=== PATIENT | male | born 1995 | race Caucasian/White ===

== ENCOUNTER 2021-07-08 08:44 | Emergency (ER) | payer OTHER, SELFPAY ==
--- NOTE | ~2021-07-08 | XR_ITS ---
EXAMINATION: XR CHEST CLINICAL INFORMATION: Flulike symptoms. COMPARISON: None TECHNIQUE: Frontal view of the chest was obtained. FINDINGS: No significant abnormality is noted involving the heart, lungs, mediastinum, bony thorax or soft tissues. XR/XR chest 1V IMPRESSION: Unremarkable chest examination.
[2021-07-08 09:03] VITALS: BP 137/81; PULSE 99; RESP 18; TEMP 37.8; O2SAT 97; BMI 26.2
[2021-07-08] MEDS: Ibuprofen 600 MG TABLET PO (09:18)
[2021-07-08 09:33] LABS: MANUAL DIFF FLAG NO
[2021-07-08 09:37] LABS: Basophils Percent Auto 0.4 % (0-2); Eosinophils Absolute Auto 0.1 X10*3/uL (0.0-0.4); Eosinophils Percent Auto 0.9 % (0-4); Hemoglobin 13.4 g/dl (14.0-18.0); Imm Gran Abs Auto 0.03 X10*3/uL (0.00-0.03); Imm Gran Pct Auto 0.4 % (0.0-0.4); Mean Corpuscular HGB Conc 33.5 g/dl (31.0-36.0); Mean Corpuscular Hemoglobin 29.8 pg (27.0-33.0); Mean Corpuscular Volume 89.1 fL (80.0-98.0); Mean Platelet Volume 10.1 fL (9.4-12.4); Monocytes Percent Auto 14.7 % (2-11); Neutrophils Absolute Auto 4.8 x10*3/uL (2.0-8.3); Neutrophils Percent Auto 69.6 % (45-73); Platelet Count 222 X10*3/uL (160-400); Red Blood Count 4.49 X10*6/uL (4.60-5.80); Red Cell Distribution Width 12.9 % (11.0-16.0); White Blood Count 6.9 X10*3/uL (4.8-10.8)
[2021-07-08 09:49] LABS: Alanine Aminotransferase 13 U/L (0-40); Albumin Level 4.5 g/dL (3.5-5.0); Alkaline Phosphatase 72 U/L (39-117); Anion Gap 12 (12-20); Aspartate Amino Transferase 15 U/L (5-37); Bilirubin Direct 0.3 mg/dL (0.0-0.5); Bilirubin Total 0.7 mg/dL (0.0-1.0); Blood Urea Nitrogen 10 mg/dL (9-16); Calcium 9.1 mg/dL (8.4-10.2); Carbon Dioxide 26 mmol/L (22-29); Chloride 103 mmol/L (96-108); Creatinine Clr Calc Pharmacy 165.7; Estimated Glomerular Filt Rate > 60; Glucose Random 94 mg/dL (60-115); Potassium 3.8 mmol/L (3.3-5.1); Sodium 137 mmol/L (135-145); Total Protein 7.1 g/dL (6.5-8.0)
[2021-07-08 09:55] LABS: COVID-19 Test Negative (Negative); IDNOW Serial# 16C4AD1C
[2021-07-08 09:56] LABS: Influenza A Positive (Negative); Influenza B2 Negative (Negative)
[2021-07-08 10:05] VITALS: PULSE 89; RESP 18; O2SAT 95
[2021-07-08] MEDS: Albuterol/Iprat 2.5/0.5MG 3 ML AMPUL.NEB INHALE (10:05)
--- NOTE | 2021-07-08 10:12 | ED.URI ---
HPI - URI/Sore Throat General Chief Complaint: Upper Respiratory Symptoms Stated Complaint: Flu symptoms Time Seen by Provider: 07/08/21 09:10 Source: patient Mode of arrival: ambulatory History of Present Illness HPI Narrative: 26-year-old male with no significant past medical history presenting to the ED complaining of productive cough, headache, nasal congestion, rhinorrhea, chest discomfort when coughing, and fever T-max 102 degrees x3 days. Took Tylenol at 03:00. Denies sick contacts, SOB, ear pain, sore throat, recent travel, pedal edema, abdominal pain, nausea/vomiting MD elicited complaint: fever, cough, rhinorrhea, nasal congestion and sinus pain Onset (ago): day(s) Related Data Previous Rx's Medication Instructions Recorded acetaminophen 500 mg tablet 500 mg PO Q6H PRN #20 tab 07/08/21 (Tylenol Extra Strength) albuterol sulfate 90 mcg/actuation 2 puff INHALATION Q4-6H PRN #6.7 g 07/08/21 aerosol inhaler benzonatate 200 mg capsule 200 mg PO TID PRN #14 cap 07/08/21 fluticasone propionate 50 2 spray INTRANASAL DAILY #16 g 07/08/21 mcg/actuation nasal spray,suspension (Flonase Allergy Relief) ibuprofen 400 mg tablet 400 mg PO Q6H 7 Days #14 tab 07/08/21 Allergies Allergy/AdvReac Type Severity Reaction Status Date / Time nortriptyline Allergy Unknown Verified 09/09/15 00:00 Review of Systems Review of Systems: Constitutional: + Fever, No Chills ENT/Mouth: No Ear Pain, + Nasal Congestion, + Sinus Pain, No Hoarseness, No sore throat, + Rhinorrhea, No Swallowing Difficulty Cardiovascular: + Chest discomfort when coughing, No SOB Respiratory: + Cough, + Sputum, No Wheezing Gastrointestinal: No Nausea, No Vomiting, No Diarrhea, No Constipation, No Abdominal pain Genitourinary: No Dysuria, No Urinary Frequency, No Hematuria, No Urgency, No Flank Pain Musculoskeletal: No joint pain, + Myalgias, No Joint Swelling Skin: No Skin Lesions, No rash Neuro: No Weakness, No Numbness Yes all other systems are reviewed and are negative [facility] Past Medical History Attestation statement: The following information was validated with the patient. Social History Social History Advance Directives: No Advance Directives Information Provided: No Physical Exam Vital Signs: Vital Signs: Last Vital Signs Temp 100.0 F 07/08/21 09:03 Pulse 89 07/08/21 10:05 Resp 18 07/08/21 10:05 BP 137/81 07/08/21 09:03 Pulse Ox 97 07/08/21 09:03 BMI result Body Mass Index 26.2 Const: General: cooperative, healthy appearing and no acute distress Orientation/consciousness: patient oriented x3 Limitations: no limitations HEENT: Head: Yes normal to inspection and Yes atraumatic Ears: hearing grossly normal bilaterally, external ears normal, TM's normal bilaterally and mastoids normal General nose exam: Normal external nose present and Nasal discharge present Face and sinus: Yes normal facial exam Mouth: moist mucous membranes and no drooling Throat: Yes tonsils normal, Yes uvula midline, No peritonsillar mass, Yes posterior oropharynx abnormal (+ posterior oropharyngeal erythema, no exudates), No uvula laterally displaced and No uvular edema Eyes: General: appearance normal, both eyes and all related structures EOM: EOMs intact bilaterally Neck: Neck: Yes normal visual inspection, Yes no lymphadenopathy, Yes no meningeal signs and Yes supple Resp: Other: coarse upper airway sounds. Talking in complete sentences, no respiratory distress Effort & Inspection: normal respiratory effort and no respiratory distress Auscultation: no crackles, no wheezes and lung sounds not diminished Cardio: Rate: regular rate Heart sounds: S1 normal heart sound present and S2 normal heart sound present GI: Inspection: Yes normal to inspection : General: Yes no CVA tenderness Back/Spine/Pelvis: Back: no CVA tenderness Skin: Rashes: no rashes Wounds: no wounds Neuro: General: patient oriented x3 and no meningeal signs Gait exam (Neuro): Normal gait present Extrem: General: Yes normal to inspection and Yes no pedal edema Course Course Course Narrative: Low concern for severe sepsis is likely viral etiology -1020--no leukocytosis. Labs otherwise unremarkable. CXR unremarkable. -influenza A positive, COVID-19 negative MDM - URI/Sore Throat MDM Narrative Medical decision making narrative: 26-year-old male with no significant past medical history presenting to the ED complaining of productive cough, headache, nasal congestion, rhinorrhea, chest discomfort when coughing, and fever T-max 102 degrees x3 days. On exam low-grade temp 100 degrees, NAD, nontoxic, lungs with coarse upper airway sounds, good air movement, no wheezing, talking in complete sentences, no pedal edema. Concern for viral illness including COVID-19 vs influenza vs bronchitis. Rule out pneumonia. Unlikely PE/ACS Plan: flu, rapid COVID, labs, CXR, DuoNeb Differential Diagnosis Differential diagnosis: Likely upper respiratory infection, sinusitis, viral infection, bronchitis and pharyngitis Medical Records Attestation: I reviewed the patient's medical records. Lab Data Attestation: I reviewed the patient's lab results. Result diagrams: 07/08/21 09:24 07/08/21 09:24 Labs: Lab Results 07/08/21 07/08/21 07/08/21 Range/Units 09:24 09:24 09:24 WBC 6.9 (4.8-10.8) X10*3/uL RBC 4.49 L (4.60-5.80) X10*6/uL Hgb 13.4 L (14.0-18.0) g/dl Hct 40.0 L (42.0-52.0) % MCV 89.1 (80.0-98.0) fL MCH 29.8 (27.0-33.0) pg MCHC 33.5 (31.0-36.0) g/dl RDW 12.9 (11.0-16.0) % Plt Count 222 (160-400) X10*3/uL MPV 10.1 (9.4-12.4) fL Immature Gran % (Auto) 0.4 (0.0-0.4) % Neut % (Auto) 69.6 (45-73) % Lymph % (Auto) 14.0 L (20-40) % Garrett % (Auto) 14.7 H (2-11) % Eos % (Auto) 0.9 (0-4) % Baso % (Auto) 0.4 (0-2) % Lymph # (Auto) 1.0 L (1.2-4.9) X10*3/uL Garrett # (Auto) 1.0 (0.1-1.2) X10*3/uL Eos # (Auto) 0.1 (0.0-0.4) X10*3/uL Baso # (Auto) 0.0 (0.0-0.2) X10*3/uL Abs Immat Gran (auto) 0.03 (0.00-0.03) X10*3/uL Absolute Neuts (auto) 4.8 (2.0-8.3) x10*3/uL Absolute Nucleated RBC 0.000 (0.0-0.012) X10*3/uL Nucleated RBC % (auto) 0.0 (0.0-0.2) /100WBC Sodium 137 (135-145) mmol/L Potassium 3.8 (3.3-5.1) mmol/L Chloride 103 (96-108) mmol/L Carbon Dioxide 26 (22-29) mmol/L Anion Gap 12 (12-20) BUN 10 (9-16) mg/dL Creatinine 0.80 (0.5-1.4) mg/dL Estim Creat Clear Calc 165.7 Estimated GFR > 60 Random Glucose 94 (60-115) mg/dL Calcium 9.1 (8.4-10.2) mg/dL Total Bilirubin 0.7 (0.0-1.0) mg/dL Direct Bilirubin 0.3 (0.0-0.5) mg/dL AST 15 (5-37) U/L ALT 13 (0-40) U/L Alkaline Phosphatase 72 (39-117) U/L Total Protein 7.1 (6.5-8.0) g/dL Albumin 4.5 (3.5-5.0) g/dL COVID-19 (JESUS) (Negative) COVID-19 Clin Com Influenza Type A (CORNEL) Positive A (Negative) Influenza Type B (CORNEL) Negative (Negative) Influenza A & B Note See Note 07/08/21 Range/Units 09:24 WBC (4.8-10.8) X10*3/uL RBC (4.60-5.80) X10*6/uL Hgb (14.0-18.0) g/dl Hct (42.0-52.0) % MCV (80.0-98.0) fL MCH (27.0-33.0) pg MCHC (31.0-36.0) g/dl RDW (11.0-16.0) % Plt Count (160-400) X10*3/uL MPV (9.4-12.4) fL Immature Gran % (Auto) (0.0-0.4) % Neut % (Auto) (45-73) % Lymph % (Auto) (20-40) % Garrett % (Auto) (2-11) % Eos % (Auto) (0-4) % Baso % (Auto) (0-2) % Lymph # (Auto) (1.2-4.9) X10*3/uL Garrett # (Auto) (0.1-1.2) X10*3/uL Eos # (Auto) (0.0-0.4) X10*3/uL Baso # (Auto) (0.0-0.2) X10*3/uL Abs Immat Gran (auto) (0.00-0.03) X10*3/uL Absolute Neuts (auto) (2.0-8.3) x10*3/uL Absolute Nucleated RBC (0.0-0.012) X10*3/uL Nucleated RBC % (auto) (0.0-0.2) /100WBC Sodium (135-145) mmol/L Potassium (3.3-5.1) mmol/L Chloride (96-108) mmol/L Carbon Dioxide (22-29) mmol/L Anion Gap (12-20) BUN (9-16) mg/dL Creatinine (0.5-1.4) mg/dL Estim Creat Clear Calc Estimated GFR Random Glucose (60-115) mg/dL Calcium (8.4-10.2) mg/dL Total Bilirubin (0.0-1.0) mg/dL Direct Bilirubin (0.0-0.5) mg/dL AST (5-37) U/L ALT (0-40) U/L Alkaline Phosphatase (39-117) U/L Total Protein (6.5-8.0) g/dL Albumin (3.5-5.0) g/dL COVID-19 (JESUS) Negative (Negative) COVID-19 Clin Com See Note Influenza Type A (CORNEL) (Negative) Influenza Type B (CORNEL) (Negative) Influenza A & B Note Discharge Plan Discharge Clinical Impression: Influenza A Patient Disposition: Home, Self-Care Instructions: Influenza (DC) Additional Instructions: You have the flu. Rest, stay hydrated. Monitor your temperatures, take Tylenol and Motrin for fever/body aches Tessalon Perles for cough take as needed Flonase as a nasal decongestant Albuterol inhaler will help with wheezing/shortness of breath, take as needed Please follow-up with her doctor in 1 week If symptoms persist or worsen, you have fever unresolved with medications, constant worsening shortness of breath or chest pain please return to the ED Please wash her hands, cover your mouth when coughing and wear mask Prescriptions: New benzonatate 200 mg capsule 200 mg PO TID PRN (Reason: cough) Qty: 14 0RF acetaminophen [Tylenol Extra Strength] 500 mg tablet 500 mg PO Q6H PRN (Reason: pain or fever) Qty: 20 0RF ibuprofen 400 mg tablet 400 mg PO Q6H 7 Days Qty: 14 0RF albuterol sulfate 90 mcg/actuation HFA aerosol inhaler 2 puff inhalation Q4-6H PRN (Reason: shortness of breath or wheezing) Qty: 6.7 0RF fluticasone propionate [Flonase Allergy Relief] 50 mcg/actuation spray,suspension 2 spray intranasal DAILY Qty: 16 0RF Rx Instructions: administer into each nostril Referrals: Physician,None [Primary Care Provider] - 1 week (as needed) Stand Alone Forms: Work/School Release
[2021-07-08 10:43] VITALS: TEMP 37.6
== END 2021-07-08 10:35 | disposition home or self-care (01) ==
PROVIDERS: Physician Assistant; Emergency Provider Emergency Medicine
DX: J10.1 Influenza due to other identified influenza virus with other respiratory manifestations (principal); R05.9 Cough, unspecified; R51.9 Headache, unspecified; R07.89 Other chest pain; Z20.822 Contact with and (suspected) exposure to COVID-19; Z79.899 Other long term (current) drug therapy
CPT/HCPCS: 36415; 71045; 80048; 80076; 85025; 87502; 87635; 94640; 99284

== ENCOUNTER 2021-07-10 22:09 | Emergency (ER) | payer OTHER, SELFPAY ==
--- NOTE | ~2021-07-10 | XR_ITS ---
EXAMINATION: XR CHEST CLINICAL INFORMATION: Evaluate for pneumonia COMPARISON: 07/08/2021 TECHNIQUE: Frontal view of the chest was obtained. FINDINGS: No significant abnormality is noted involving the heart, lungs, mediastinum, bony thorax or soft tissues. XR/XR chest 1V IMPRESSION: Unremarkable examination.
[2021-07-10 22:42] VITALS: BP 140/95; PULSE 76; RESP 16; TEMP 36.9; O2SAT 98; BMI 26.2
[2021-07-10 23:13] LABS: IDNOW Serial# 55D5AD1C; Influenza A Negative (Negative); Influenza B2 Negative (Negative)
[2021-07-10 23:14] LABS: COVID-19 Test Negative (Negative)
--- NOTE | 2021-07-11 00:56 | ED.URI ---
HPI - URI/Sore Throat General Chief Complaint: Upper Respiratory Symptoms Stated Complaint: Weakness/Fever/Sob Time Seen by Provider: 07/11/21 00:55 Source: patient Mode of arrival: ambulatory Limitations: no limitations History of Present Illness HPI Narrative: Patient comes to emergency room complaining 3 days of cough, congestion and fever. Patient's and baby tested positive for influenza A. Patient denies vomiting or diarrhea. Of Note, patient was diagnosed with influenza a 2 days ago here in this hospital. Patient has no new symptoms. Patient has already been prescribed Tessalon Perles, Tylenol, ibuprofen, albuterol and fluticasone. Related Data Previous Rx's Medication Instructions Recorded acetaminophen 500 mg tablet 500 mg PO Q6H PRN #20 tab 07/08/21 (Tylenol Extra Strength) albuterol sulfate 90 mcg/actuation 2 puff INHALATION Q4-6H PRN #6.7 g 07/08/21 aerosol inhaler benzonatate 200 mg capsule 200 mg PO TID PRN #14 cap 07/08/21 fluticasone propionate 50 2 spray INTRANASAL DAILY #16 g 07/08/21 mcg/actuation nasal spray,suspension (Flonase Allergy Relief) ibuprofen 400 mg tablet 400 mg PO Q6H 7 Days #14 tab 07/08/21 prednisone 50 mg tablet 50 mg PO DAILY #5 tab 07/11/21 Allergies Allergy/AdvReac Type Severity Reaction Status Date / Time nortriptyline Allergy Unknown Verified 09/09/15 00:00 Review of Systems Review of Systems: Constitutional : No Weight loss, complaining of subjective fever, No Chills, No Night Sweats, No Fatigue, No Malaise ENT/Mouth : No Hearing loss, No Ear Pain, No Nasal Congestion, No Sinus Pain, No Hoarseness, No sore throat, No Rhinorrhea, No Swallowing Difficulty Eyes: No Eye Pain, No Swelling, No Redness, No Foreign Body, No Discharge, No Vision Changes Cardiovascular : No Chest Pain, No SOB, No Dyspnea on Exertion, No Orthopnea, No Edema, No Palpitations Respiratory : Complaining of cough, congestion, wheezing Gastrointestinal : No Nausea, No Vomiting, No Diarrhea, No Constipation, No abdominal Pain, No Hematochezia, No Melena Genitourinary : no irregular bleeding, No Dysuria, No Urinary Frequency, No Hematuria, No Urinary Incontinence, No Urgency, No Flank Pain, No Urinary Flow Changes, No Hesitancy Musculoskeletal : No joint pain, No Myalgias, No Joint Swelling Skin : No Skin Lesions, No rash Neuro : No Weakness, No Numbness, No Paresthesias, No Loss of Consciousness, No Dizziness, No Headache Psych : No Anxiety/Panic, No Depression, No SI/HI/AH/VH, No Social Issues, Heme/Lymph: No Bruising, No Bleeding,No Lymphadenopathy Endocrine : No Polyuria, No Polydipsia, No Temperature Intolerance [facility] Social History Social History Advance Directives: No Physical Exam Vital Signs: Vital Signs: Last Vital Signs Temp 98.4 F 07/10/21 22:42 Pulse 76 07/10/21 22:42 Resp 16 07/10/21 22:42 BP 140/95 H 07/10/21 22:42 Pulse Ox 98 07/10/21 22:42 BMI result Body Mass Index 26.2 Const: Other: Appearance: Alert. Oriented X3. No acute distress. Eyes: Pupils equal, round and reactive to light. ENT: Pharynx normal. Neck: Normal inspection. Neck supple. No lymph nodes noted. No crepitus CVS: Normal heart rate and rhythm. Pulses normal. Normal S1 and S2 Respiratory: No respiratory distress. No crackles, very mild wheezing bilaterally, mild rales Abdomen: Soft and nontender. No rigidity. No distention. Skin: Skin warm and dry. Normal skin color. Normal skin turgor. Extremities: No lower extremity edema. No Lacerations. No Rash Neuro: Oriented X 3. No motor deficit. No sensory deficit. Moving all extremities. No slurred speech. CN 2 through 12 grossly intact Psych: calm, cooperative, normal affect Course Course Course Narrative: Patient tested negative for influenza. However his and child have influenza A. Likely a false negative. Patient does have mild wheezing, no history of influenza. Patient will be prescribed albuterol and steroids. No antibiotics at this time, likely a viral infection. I reviewed the chest x-ray, no acute findings. Radiology report pending. Patient had a chest x-ray done 2 days ago, no acute findings. I discussed with the patient that this time, his and baby have influenza a, likely a viral infection, no antibiotics needed. [facility] - URI/Sore Throat Lab Data Labs: Lab Results 07/10/21 07/10/21 Range/Units 22:50 22:50 COVID-19 ([facility]) Negative (Negative) COVID-19 Clin Com See Note Influenza Type A (CORNEL) Negative (Negative) Influenza Type B (CORNEL) Negative (Negative) Influenza A & B Note See Note Discharge Plan Discharge Clinical Impression: Upper respiratory virus Patient Disposition: Home, Self-Care Instructions: Viral Syndrome (ED) Additional Instructions: Please follow-up with your primary care physician tomorrow. If you have any worsening or new symptoms, please return to the emergency room or call 911 Prescriptions: New prednisone 50 mg tablet 50 mg PO DAILY Qty: 5 0RF No Action benzonatate 200 mg capsule 200 mg PO TID PRN (Reason: cough) Qty: 14 0RF acetaminophen [Tylenol Extra Strength] 500 mg tablet 500 mg PO Q6H PRN (Reason: pain or fever) Qty: 20 0RF ibuprofen 400 mg tablet 400 mg PO Q6H 7 Days Qty: 14 0RF albuterol sulfate 90 mcg/actuation HFA aerosol inhaler 2 puff inhalation Q4-6H PRN (Reason: shortness of breath or wheezing) Qty: 6.7 0RF fluticasone propionate [Flonase Allergy Relief] 50 mcg/actuation spray,suspension 2 spray intranasal DAILY Qty: 16 0RF Rx Instructions: administer into each nostril
== END 2021-07-11 01:46 | disposition home or self-care (01) ==
PROVIDERS: Emergency Provider Emergency Medicine
DX: J06.9 Acute upper respiratory infection, unspecified (principal); Z20.822 Contact with and (suspected) exposure to COVID-19
CPT/HCPCS: 71045; 87502; 87635; 99283

== ENCOUNTER → 2021-07-15 11:54 | Outpatient (BNVA) | payer OTHER, SELFPAY | PROVIDERS: Visit Provider Physician Assistant | DX: H00.015 Hordeolum externum left lower eyelid (principal) | CPT/HCPCS: 99203 ==

== ENCOUNTER 2021-07-17 07:13 | Emergency (ER) | payer OTHER, SELFPAY ==
[2021-07-17 07:15] VITALS: BP 126/96; PULSE 92; RESP 17; TEMP 36.2; O2SAT 98; BMI 26.2
--- NOTE | 2021-07-17 08:29 | ED_ITS ---
HPI - Eye Problem General Chief complaint: Eye Problems Stated complaint: Eye pain Time Seen by Provider: 07/17/21 08:07 Source: patient Mode of arrival: ambulatory Limitations: no limitations History of Present Illness HPI Narrative: 26-year-old male who presents emergency department for evaluation of painful stye to the left eye. 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 After this states that he felt he had something in his eye but washed out his eye. The next day he noted swelling of the lower eyelid. He states that the swelling has gotten progressively worse. He did follow-up with Archana Hankins who diagnosed him with a. I and started him on eyedrops. He also states that he saw an enforcement officer to attempted to drain te stye by squeezing stye but this was unsuccessful. He states that he was prescribed an appointment but this was not at the pharmacy when he went to pick it up . He states that today the redness and swelling to the lower part of his left thigh got worse and the eye stye is bigger and more painful. He states the pain is a constant, aching pain which is 10/10, the pain is not relieved by Tylenol ibuprofen. He has been applying warm compresses. He denies any change in his vision. He denied fever, chills or headache. Related Data Previous Rx's Medication Instructions Recorded acetaminophen 500 mg tablet 500 mg PO Q6H PRN #20 tab 07/08/21 (Tylenol Extra Strength) albuterol sulfate 90 mcg/actuation 2 puff INHALATION Q4-6H PRN #6.7 g 07/08/21 aerosol inhaler benzonatate 200 mg capsule 200 mg PO TID PRN #14 cap 07/08/21 fluticasone propionate 50 2 spray INTRANASAL DAILY #16 g 07/08/21 mcg/actuation nasal spray,suspension (Flonase Allergy Relief) ibuprofen 400 mg tablet 400 mg PO Q6H 7 Days #14 tab 07/08/21 prednisone 50 mg tablet 50 mg PO DAILY #5 tab 07/11/21 oxycodone 5 mg tablet 5 mg PO Q4H PRN #10 tab 07/17/21 Allergies Allergy/AdvReac Type Severity Reaction Status Date / Time nortriptyline Allergy Unknown Verified 09/09/15 00:00 Review of Systems Review of Systems: Yes all other systems are reviewed and are negative [facility] Past Medical History [facility] Narrative: Past medical history: None. Past surgical history: None. Social history: He does smoke cigarettes. He occasionally drinks alcohol. He denies drug use. Social History Social History Advance Directives: No Advance Directives Information Provided: Yes Physical Exam Vital Signs: Vital Signs: Last Vital Signs Temp 97.2 F 07/17/21 07:15 Pulse 92 07/17/21 07:15 Resp 17 07/17/21 07:15 BP 126/96 H 07/17/21 07:15 Pulse Ox 98 07/17/21 07:15 BMI result Body Mass Index 26.2 Const: Other: Awake, alert, male patient, pleasant cooperative, no distress HEENT: Other: Normal cephalic and atraumatic, years were normal, nose revealed no exudates, mouth revealed moist membranes, throat revealed no erythema or exudates Eyes: Other: Patient's pupils are equal round reactive light, sclera and conjunctiva were normal, cornea are clear, the patient has a stye to medial 3rd his left lower eyelid, the stye does appear to be coming to a head, he does have soft tissue swelling of the left lower eyelid as well as some erythema to the inferior orbital aspect of his face with no increased warmth or tenderness palpation of this area. Neck: Other: Supple with no adenopathy Resp: Effort & Inspection: normal respiratory effort Psych: Appearance: grossly normal Mental Status: mental status grossly normal Speech and movement: Normal speech and movement present Affect: normal affect Course Course Course Narrative: 26-year-old male who presents emergency department for evaluation of left eye pain x4 days, the patient has been seen by the occupational health clinic and by an enforcement officer. His findings are consistent with a stye that appears to be pointing and looks like it is going to drain spontaneously. I did discuss management eye stye with the patient. Patient was advised to use baby shampoo to clean the lower lid, apply erythromycin ointment and a warm complex for 20 minutes 4 times a day. He is advised to take Tylenol and ibuprofen for pain and for pain not relieved by these medications he was prescribed oxycodone. He was given printed and verbal instructions and discharged home. Discharge Plan Discharge Clinical Impression: Hordeolum externum (stye) Patient Disposition: Home, Self-Care Instructions: Stye (ED) Additional Instructions: Use baby shampoo mixed in warm water. Dip in a Q-tip and cleaning the bottom eyelid with this solution. Then apply erythromycin ointment to the bottom eyelid with a Q-tip. Then apply a warm compress for 20 minutes. Repeat this every 2-4 hours for the next 2 days and that should cause the stye to spontaneously drain. Do not squeeze the stye Take ibuprofen 200 mg pills, 3 pills every 6 hours as needed for pain. Take Tylenol (acetaminophen) 500 mg pills, 2 pills every 4-6 hours as needed for pain. For pain not relieved by ibuprofen or Tylenol take oxycodone 5 mg pills, 1 pill every 4 hours as needed for pain. Do not drive or work while taking this medication since they can cause sleepiness. Oxycodone is a narcotic medication that can be addicting. If you are concerned about addiction you can ask the pharmacist for less pills or do not get this prescription filled. Follow-up with your doctor in 2 days. Please return to the emergency department if your symptoms get worse or if you develop any symptoms that are concerning to you. Prescriptions: New oxycodone 5 mg tablet 5 mg PO Q4H PRN (Reason: pain) Qty: 10 0RF Rx Instructions: Patient may request partial fill No Action benzonatate 200 mg capsule 200 mg PO TID PRN (Reason: cough) Qty: 14 0RF acetaminophen [Tylenol Extra Strength] 500 mg tablet 500 mg PO Q6H PRN (Reason: pain or fever) Qty: 20 0RF ibuprofen 400 mg tablet 400 mg PO Q6H 7 Days Qty: 14 0RF albuterol sulfate 90 mcg/actuation HFA aerosol inhaler 2 puff inhalation Q4-6H PRN (Reason: shortness of breath or wheezing) Qty: 6.7 0RF fluticasone propionate [Flonase Allergy Relief] 50 mcg/actuation spray,suspension 2 spray intranasal DAILY Qty: 16 0RF Rx Instructions: administer into each nostril prednisone 50 mg tablet 50 mg PO DAILY Qty: 5 0RF
[2021-07-17] MEDS: Erythromycin Base 0.5% Oph Oin 1 GM TUBE 1 CM EYE-LEFT (09:10)
== END 2021-07-17 09:24 | disposition home or self-care (01) ==
PROVIDERS: Emergency Provider Emergency Medicine Emergency Medical Services
DX: H00.015 Hordeolum externum left lower eyelid (principal); H57.12 Ocular pain, left eye; Z79.899 Other long term (current) drug therapy
CPT/HCPCS: 99283

== ENCOUNTER 2022-02-16 17:18 | Emergency (ER) | payer OTHER, SELFPAY ==
--- NOTE | ~2022-02-16 | XR_ITS ---
EXAMINATION: XR CHEST CLINICAL INFORMATION: Cough and fever COMPARISON: None TECHNIQUE: 2 views of the chest were obtained. FINDINGS: No significant abnormality is noted involving the heart, lungs, mediastinum, bony thorax or soft tissues. XR/XR chest 2V IMPRESSION: Unremarkable examination.
[2022-02-16 17:27] VITALS: BP 140/62; PULSE 80; RESP 96; TEMP 36.9; O2SAT 97; BMI 26.9
[2022-02-16 17:42] LABS: MANUAL DIFF FLAG NO
[2022-02-16 17:54] LABS: Basophils Percent Auto 0.3 % (0-2); Eosinophils Percent Auto 0.1 % (0-4); Hematocrit 43.6 % (42.0-52.0); Hemoglobin 14.4 g/dl (14.0-18.0); Imm Gran Abs Auto 0.13 X10*3/uL (0.00-0.03); Imm Gran Pct Auto 1.3 % (0.0-0.4); Lymphocytes Absolute Auto 0.4 X10*3/uL (1.2-4.9); Lymphocytes Percent Auto 3.7 % (20-40); Mean Corpuscular Hemoglobin 29.6 pg (27.0-33.0); Mean Corpuscular Volume 89.7 fL (80.0-98.0); Mean Platelet Volume 10.5 fL (9.4-12.4); Monocytes Absolute Auto 1.3 X10*3/uL (0.1-1.2); Monocytes Percent Auto 12.4 % (2-11); Neutrophils Absolute Auto 8.4 x10*3/uL (2.0-8.3); Neutrophils Percent Auto 82.2 % (45-73); Platelet Count 233 X10*3/uL (160-400); Red Blood Count 4.86 X10*6/uL (4.60-5.80); Red Cell Distribution Width 12.5 % (11.0-16.0); White Blood Count 10.3 X10*3/uL (4.8-10.8)
[2022-02-16 17:58] LABS: Anion Gap 14 (12-20); Blood Urea Nitrogen 11 mg/dL (9-16); Calcium 9.4 mg/dL (8.4-10.2); Carbon Dioxide 26 mmol/L (22-29); Chloride 103 mmol/L (96-108); Creatinine Clr Calc Pharmacy 167.8; Estimated Glomerular Filt Rate > 60; Glucose Random 103 mg/dL (60-115); Potassium 4.3 mmol/L (3.3-5.1); Sodium 139 mmol/L (135-145)
[2022-02-16 18:21] LABS: Influenza A PCR NEGATIVE (Negative); Influenza B PCR NEGATIVE (Negative); Resp Syncy Virus RNA Qual PCR NEGATIVE (Negative); SARS COV2 PCR INHOUSE POSITIVE (Negative)
== END 2022-02-16 20:13 | disposition left against medical advice (07) ==
PROVIDERS: Emergency Medicine; Emergency Provider Emergency Medicine
DX: U07.1 COVID-19 (principal); R51.9 Headache, unspecified
CPT/HCPCS: 0241U; 36415; 71046; 80048; 85025; 99282; 99283